=== PATIENT | male | born 1965 | race Caucasian/White ===

== ENCOUNTER 2016-05-02 10:42 | Emergency (ER) | payer OTHER ==
[2016-05-02 10:53] VITALS: BP 145/93
[2016-05-02] MEDS ORDERED: XYLOCAINE-MPF 1% INJ ONE (11:03)
[2016-05-02] MEDS ORDERED: XYLOCAINE-MPF 1% 10 ML ONE (11:04)
--- NOTE | 2016-05-02 11:08 | PROVIDER DOCUMENTATION ---
HPI-Work Related Injury - General Chief Complaint: Work Related Injury Stated Complaint: WORK RELATED INJURY Time Seen by Provider: 05/02/16 10:50 Source: patient Allergies/Adverse Reactions: Patient Allergies Allergy/AdvReac Type Severity Reaction Status Date / Time No Known Allergies Allergy Verified 05/02/16 10:49 Home Medications: Home Medication List Medication Instructions Recorded Confirmed Last Taken Type Buprenorphine HCl/Naloxone HCl 1 each SL BID 04/21/12 05/02/16 Unknown History [Suboxone 8 mg/2 mg Sl Film] Lisinopril 20 mg PO DAILY 04/21/12 05/02/16 Unknown History Lorazepam [Ativan] 1 mg PO QHS 04/21/12 05/02/16 04/20/12 21:00 History Meloxicam 15 mg PO DAILY 04/21/12 05/02/16 Unknown History Zolpidem Tartrate 10 mg PO HS 04/21/12 05/02/16 04/20/12 21:00 History Sulfamethoxazole/Trimethoprim 1 each PO BID #10 tablet 05/02/16 Unknown Rx [Bactrim Ds Tablet] - History of Present Illness-Work Injury Nature of PresentingProblem: 50 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 Pt states that he fell onto a piece of steel and cut his R forearm. States tetanus is up to date- 2015. Denies numbness/tingling, elbow or wrist pain. Review of Systems - Adult - REVIEW OF SYSTEMS - ADULT Constitutional: reports: no symptoms reported. denies: chills, fever Eyes: reports: no symptoms reported. denies: blurred vision, double vision Ears, Nose, Mouth & Throat: reports: no symptoms reported. denies: ear pain, nose pain Cardiovascular: reports: no symptoms reported. denies: chest pain, palpitations Respiratory: reports: no symptoms reported. denies: dyspnea on exertion, shortness of breath Gastrointestinal: reports: no symptoms reported. denies: abdominal pain, nausea , vomiting Genitourinary: reports: no symptoms reported. denies: dysuria, frequency Musculoskeletal: reports: no symptoms reported. denies: joint pain, joint swelling Integumentary: reports: see HPI, other. denies: nail changes, rash Neurological: reports: no symptoms reported. denies: numbness, paresthesia Psychiatric: reports: no symptoms reported Endocrine: reports: no symptoms reported. denies: cold intolerance, heat intolerance Hematologic/Lymphatic: reports: no symptoms reported. denies: easy bruising, prolonged bleeding Allergic/Immunologic: reports: no symptoms reported All Other Systems: Reviewed and Negative Past History - Adult - PAST MEDICAL HISTORY-ADULT Review of Records: reports: Nursing Assessment Review, Medications Reviewed - SOCIAL HISTORY Smoking: cigarettes, less than 1 pack/day Provider spent 3-5 mins advising pt. on dangers of tobacco.: Discussed manners to quit use, and f/u contacts for add'l counseling. Physical Exam-Injury Related - Physical Exam-Injury Related Initial Vital Signs Reviewed: Yes General Appearance: alert, mild distress Eyes: pink conjunctivae Head, Ears, Nose, Mouth & Throat: normocephalic/atraumatic, moist mucous membranes Neck: normal inspection Respiratory: no respiratory distress Cardiovascular: normal peripheral pulses, regular rate, rhythm. negative: bradycardia, tachycardia Peripheral Pulses: radial (R): 2+, radial (L): 2+ Extremity: normal range of motion, normal capillary refill. negative: abnormal NV exam, deformity, pulse deficit Integumentary: normal color, warm/dry, blanching, laceration Neurologic: negative: aphasia, motor weakness (bilat UE), sensory deficit ( bilat UE) Psych/Mental Status: normal mood/affect, normal thought content, normal thought process, oriented x 3 Progress - PLAN OF CARE/RESULTS Progress/Plan/Lab Results: Orders Category Date Time Status Suture Tray Set-Up DIRECTED Care 05/02/16 11:03 Active FOREARM-RIGHT [RAD] Stat Exams 05/02/16 11:01 Completed Lidocaine 1% Pf [Xylocaine-Mpf 1%] Med 05/02/16 11:03 Discontinued See Dose Instructions INJ NOW ONE Lidocaine 1% Pf [Xylocaine-Mpf 1%] 10 ml Med 05/02/16 11:04 Discontinued .ROUTE As Directed Vital Signs Temp Pulse Resp BP Pulse Ox 05/02/16 10:47 98.5 F 73 18 145/93 94 L No Known Allergies Allergy (Verified 05/02/16 10:49) Buprenorphine HCl/Naloxone HCl [Suboxone 8 mg/2 mg Sl Film] 1 each SL BID Lisinopril 20 mg PO DAILY 04/21/12 Lorazepam [Ativan] 1 mg PO QHS 04/21/12 Meloxicam 15 mg PO DAILY 04/21/12 Zolpidem Tartrate 10 mg PO HS 04/21/12 Sulfamethoxazole/Trimethoprim [Bactrim Ds Tablet] 1 each PO BID #10 tablet 05/02 Discussed wound care and f/u with pt. - XRAY 1 XRAY: Right XRAY Study: Forearm Impression: See EMR Report (no fx, per Dr. Lazar) Procedures - LACERATION/WOUND REPAIR/FB Right Forearm Wound Length: 4 cm Wound's Depth, Shape: irregular, flap Wound Explored/Foreign Body: contaminated moderately, foreign body removed Irrigated with Saline?: Yes Prepped with: Chlorhexidine Anesthetic: 1%, Lidocaine/Xylocaine Volume of Anesthetic (ml's): 7 Wound Debrided: minimal Wound Repaired with: Sutures Suture Size/Type: 4.0, Non-Absorbable, Nylon Number of Sutures: 9 Layer Closure?: No Sterile Dressing Applied?: Yes Splint Applied?: No Sling Applied?: No Post Procedure Neurovascular Exam: Intact Procedure Comment: Pt tolerated well Departure - Departure Time of Disposition Order: 11:32 DIAGNOSIS: Laceration Disposition: HOME 01 Certified Medical Emergency: Emergent Condition: Stable Additional Instructions: Return in 10-14 days for wound recheck. Take medications as directed. Keep wound clean and dry; covered if in dirty environment/at work. ED Follow Up Instructions: You have been treated by a care provider in the Emergency Department. These instructions are being provided to you so you can have an understanding of how to care for yourself upon discharge. Upon discharge from the Emergency Department, you are responsible for making arrangements for follow-up care by a physician of your choice. Take all prescribed medications as directed. Return to the Emergency Department immediately for any new or worsening symptoms. You may call the Physician Referral phone number at [phone] to obtain a list of Physicians who are taking new patients. Prescriptions: Sulfamethoxazole/Trimethoprim [Bactrim Ds Tablet] 1 each PO BID #10 tablet Referrals: [facility] [NON-STAFF] - Negar Oneal MD [Primary Care Provider] - Instructions: Laceration Care, Adult, [id number], Sulfamethoxazole; Trimethoprim, [id number] tablets Attestation - Physician/ GUERLINE Attestation Patient care was provided by Advanced Practice Provider:: Yes Advanced Practice Provider:: Jasmyne Tran Advanced Practice Provider documentation review:: The Mid-level provider documentation, treatment plan and medical decision making was reviewed by the physician who agrees with all treatment and medical decision making by the MLP.
--- NOTE | 2016-05-02 12:14 | Diag Imaging Result Document ---
PROCEDURE NAME: FOREARM-RIGHT - 05/02/2016 RIGHT FOREARM, TWO VIEWS: FINDINGS: No fracture. No dislocation. IMPRESSION: No acute bony injury.
== END 2016-05-02 12:23 | disposition home or self-care (01) ==
LOC: P.ED 10:42
DX: S51.821A Laceration with foreign body of right forearm, initial encounter (principal); W19.XXXA Unspecified fall, initial encounter; W45.8XXA Other foreign body or object entering through skin, initial encounter; F17.210 Nicotine dependence, cigarettes, uncomplicated; Z71.6 Tobacco abuse counseling; Z79.899 Other long term (current) drug therapy; Z79.1 Long term (current) use of non-steroidal anti-inflammatories (NSAID)